=== PATIENT | female | born 1970 | race Caucasian/White ===

== ENCOUNTER 2020-02-02 20:43 | Emergency (ER) | payer OTHER ==
[~2020-02-02] VITALS: Ht 149.9 cm; Wt 59.9 kg
[~2020-02-02 20:43] MED LIST: HYDR-3108 PO; METO50TA20 PO
--- NOTE | 2020-02-02 21:04 | NUR ---
PT TAKEN TO BED 4
[2020-02-02 21:11] VITALS: BP 144/77
--- NOTE | 2020-02-02 21:30 | NUR ---
PT CAME IN WITH C/O EXCESSIVE ABD GIRTH AND ABD PAIN, UNABLE TO STATE FOR HOW LONG. PT DENIES N/V/D. AFEBRILE. PT UNWILLING TO PROVIDE MUCH INFORMATION, SHE BECOMES AGITATED WHEN ASKED QUESTIONS. PT IS IN THE BED TALKING TO HERSELF, WILL NOT SAY IF HX OF PSYCH ISSUES. PT ON BEDSIDE MONITOR. PT STATES HX OF ASTHMA, HTN, AND PANCREATITIS. ALLERGY - AMOXICILLIN, KEFLEX
--- NOTE | 2020-02-02 21:51 | NUR ---
Dr. Ingram examining patient.
[2020-02-02 22:11] LABS: BASOPHILS # (AUTO) 0.1 K/uL (0.00-0.22); BASOPHILS % (AUTO) 1.1 % (0.0-2.0); EOSINOPHILS # (AUTO) 0.2 K/uL (0-0.4); EOSINOPHILS % (AUTO) 2.9 % (0.0-4.0); HEMOGLOBIN 10.2 g/dL (12.0-16.0); LYMPHOCYTES # (AUTO) 2.4 K/uL (2.5-16.5); LYMPHOCYTES % (AUTO) 31.4 % (20.5-51.1); MEAN CORPUSCULAR HEMOGLOBIN 25 pg (27-31); MEAN CORPUSCULAR HGB CONC 32 g/dL (33-37); MEAN CORPUSCULAR VOLUME 77.4 fL (80-94); MONOCYTES # (AUTO) 0.9 K/uL (0.8-1.0); MONOCYTES % (AUTO) 11.6 % (1.7-9.3); PLATELET COUNT (AUTO) 339 K/uL (140-450); RED BLOOD CELL COUNT(AUTO) 4.13 MIL/uL (4.20-5.40); RED CELL DISTRIBUTION WIDTH 19.4 % (11.6-13.7); WHITE BLOOD COUNT (AUTO) 7.5 K/uL (4.8-10.8)
--- NOTE | 2020-02-02 22:14 | NUR ---
LABS COLLECTED AND TAKEN TO LAB. PT ADVISED WE NEED A URINE SPECIMEN, UNABLE TO GIVE AT THIS TIME
[2020-02-02 22:26] LABS: ALBUMIN 3.5 g/dL (3.4-5.0); ANION GAP 13.1 (8-16); CARBON DIOXIDE 22.7 mmol/L (21-32); CREATININE 0.8 mg/dL (0.6-1.3); POTASSIUM 3.8 mmol/L (3.5-5.1); TOTAL BILIRUBIN 0.3 mg/dL (0.0-1.0)
[2020-02-02] MEDS ORDERED: ACETAMINOPHEN EXTRA STRENGTH 500 MG TAB PO ONE (22:35)
[2020-02-02] MEDS ORDERED: KETOROLAC 15 MG/ML VIAL IVP ONE (22:35)
--- NOTE | 2020-02-02 23:00 | NUR ---
PT UNABLE TO STATE IF THE MEDICATION HELPED WITH HER PAIN. SHE CONSTANTLY SAYS "ITS THE EXTRA WEIGHT AND HEAVINESS" UNABLE TO GET A CLEAR ANSWER.
--- NOTE | 2020-02-02 23:47 | NUR ---
PT IS SLEEPING, RESPIRATIONS REGULAR EVEN AND UNLABORED.
--- NOTE | 2020-02-03 01:33 | NUR ---
PT UP FOR DISCHARGE, STATES SHE NEEDS TO SPEAK TO THE DOCTOR BEFORE SHE GOES, SHE'S TOO "BLOWN UP". PT DOESN'T THINK HER ISSUE HAS BEEN RESOLVED
--- NOTE | 2020-02-03 03:31 | NUR ---
PT SLEEPING, RESPIRATIONS REGULAR EVEN AND UNLABORED.
[2020-02-03 04:01] VITALS: BP 138/84
--- NOTE | 2020-02-03 04:04 | NUR ---
Patient discharged with v/s stable. Written and verbal after care instructions given and explained. Patient alert, oriented and verbalized understanding of instructions. Ambulatory with steady gait. All questions addressed prior to discharge. ID band removed. Patient advised to follow up with PMD. Rx of HCTZ AND PEPCID given. Patient educated on indication of medication including possible reaction and side effects. Opportunity to ask questions provided and answered.
--- NOTE | 2020-02-03 04:04 | NUR ---
PT WAS PROVIDED WITH A BUS PASS.
== END 2020-02-03 04:04 | disposition home or self-care (01) ==
LOC: MED 20:43
DX: K85.90 Acute pancreatitis without necrosis or infection, unspecified (principal); I10 Essential (primary) hypertension; J45.909 Unspecified asthma, uncomplicated; Z88.1 Allergy status to other antibiotic agents; Z88.0 Allergy status to penicillin; Z76.0 Encounter for issue of repeat prescription; Z79.899 Other long term (current) drug therapy; F17.210 Nicotine dependence, cigarettes, uncomplicated; F12.10 Cannabis abuse, uncomplicated; Z59.0 Homelessness
CPT/HCPCS: 36415; 80053; 81002; 81025; 83690; 85025; 96374; 99283; J1885; 96372

== ENCOUNTER 2020-02-08 03:18 | Emergency (ER) | payer OTHER ==
[~2020-02-08] VITALS: Ht 165.1 cm; Wt 63.5 kg
[2020-02-08] MEDS ORDERED: diphenhydrAMINE 50 MG/ML VIAL IM ONE (03:35)
[2020-02-08] MEDS ORDERED: KETOROLAC 30 MG/ML VIAL IM ONE (03:35)
[2020-02-08 05:55] LABS: ALBUMIN 3.4 g/dL (3.4-5.0); ANION GAP 8.2 (8-16); CARBON DIOXIDE 31.1 mmol/L (21-32); CREATININE 0.9 mg/dL (0.6-1.3); POTASSIUM 3.3 mmol/L (3.5-5.1); TOTAL BILIRUBIN 0.2 mg/dL (0.0-1.0)
== END 2020-02-08 06:33 | disposition home or self-care (01) ==
LOC: MED 03:18
DX: R10.9 Unspecified abdominal pain (principal); L29.9 Pruritus, unspecified; J45.909 Unspecified asthma, uncomplicated; I10 Essential (primary) hypertension; Z88.1 Allergy status to other antibiotic agents; Z79.899 Other long term (current) drug therapy
CPT/HCPCS: 36415; 80053; 83690; 96372; 99284; J1200; J1885

== ENCOUNTER 2020-02-12 03:20 | Emergency (ER) | payer OTHER ==
[~2020-02-12] VITALS: Ht 152.4 cm; Wt 63.5 kg
[2020-02-12 03:27] VITALS: BP 130/83
--- NOTE | 2020-02-12 03:31 | NUR ---
PT TAKEN TO BED 8
--- NOTE | 2020-02-12 03:36 | NUR ---
ERMD AT BEDSIDE.
--- NOTE | 2020-02-12 03:50 | NUR ---
NO NURSING INTERVENTIONS NEEDED.
[2020-02-12 03:51] VITALS: BP 130/83
--- NOTE | 2020-02-12 03:51 | NUR ---
PT D/C WITH RX OF MAT. PT REFUSING TO SIGN DC PAPERWORK. PT REFUSING TO LEAVE ER. SECURITY CALLED TO ESCORT PT OUT OF ER.
== END 2020-02-12 03:51 | disposition home or self-care (01) ==
LOC: MED 03:20
DX: L29.9 Pruritus, unspecified (principal); F15.10 Other stimulant abuse, uncomplicated; I10 Essential (primary) hypertension; J45.909 Unspecified asthma, uncomplicated; Z88.1 Allergy status to other antibiotic agents; Z79.899 Other long term (current) drug therapy
CPT/HCPCS: 99282

== ENCOUNTER 2020-03-02 06:20 | Emergency (ER) | payer OTHER ==
[~2020-03-02] VITALS: Ht 149.9 cm; Wt 59.0 kg
[2020-03-02 06:30] VITALS: BP 143/88
[2020-03-02] MEDS ORDERED: KETOROLAC 30 MG/ML VIAL IVP ONE (06:35)
[2020-03-02] MEDS ORDERED: ONDANSETRON 4 MG/2 ML VIAL IVP ONE (06:35)
[2020-03-02] MEDS ORDERED: NACL 0.9% 500 ML IV ONE (06:35)
[2020-03-02 06:45] VITALS: BP 143/88
== END 2020-03-02 06:45 | disposition left against medical advice (07) ==
LOC: MED 06:20
DX: R10.9 Unspecified abdominal pain (principal); I10 Essential (primary) hypertension; J45.909 Unspecified asthma, uncomplicated; Z88.1 Allergy status to other antibiotic agents; Z79.899 Other long term (current) drug therapy; Z53.21 Procedure and treatment not carried out due to patient leaving prior to being seen by health care provider

== ENCOUNTER 2020-03-02 08:32 | Emergency (ER) | payer OTHER ==
[~2020-03-02] VITALS: Ht 147.3 cm; Wt 65.8 kg
[2020-03-02] MEDS ORDERED: DICYCLOMINE HCL LIQUID 20 MG, ALUMINUM HYD/MAG/SIMETHICONE 30 ML, LIDOCAINE VISCOUS 2% ... PO ONE ×3 (08:55)
[2020-03-02] MEDS ORDERED: KETOROLAC 15 MG/ML VIAL IM ONE (08:55)
[2020-03-02] MEDS ORDERED: LIDOCAINE VISCOUS 2% 20 ML UDC ONE (09:05)
[2020-03-02] MEDS ORDERED: DICYCLOMINE HCL LIQUID 10 MG/5 ML UDC ONE (09:06)
[2020-03-02] MEDS ORDERED: ALUMINUM HYD/MAG/SIMETHICONE 30 ML UDC ONE (09:06)
[2020-03-02 09:16] LABS: BASOPHILS # (AUTO) 0.1 K/uL (0.00-0.22); BASOPHILS % (AUTO) 1.2 % (0.0-2.0); EOSINOPHILS # (AUTO) 0.1 K/uL (0-0.4); EOSINOPHILS % (AUTO) 1.1 % (0.0-4.0); HEMATOCRIT 33.9 % (36-48); HEMOGLOBIN 10.9 g/dL (12.0-16.0); LYMPHOCYTES # (AUTO) 1.6 K/uL (2.5-16.5); LYMPHOCYTES % (AUTO) 18.9 % (20.5-51.1); MEAN CORPUSCULAR HEMOGLOBIN 24 pg (27-31); MEAN CORPUSCULAR HGB CONC 32 g/dL (33-37); MEAN CORPUSCULAR VOLUME 75.6 fL (80-94); MONOCYTES # (AUTO) 0.6 K/uL (0.8-1.0); MONOCYTES % (AUTO) 7.8 % (1.7-9.3); NEUTROPHILS # (AUTO) 5.9 K/uL (1.8-7.7); PLATELET COUNT (AUTO) 369 K/uL (140-450); RED BLOOD CELL COUNT(AUTO) 4.48 MIL/uL (4.20-5.40); RED CELL DISTRIBUTION WIDTH 19.8 % (11.6-13.7); WHITE BLOOD COUNT (AUTO) 8.3 K/uL (4.8-10.8)
[2020-03-02 09:29] LABS: ALBUMIN 3.6 g/dL (3.4-5.0); CREATININE 0.6 mg/dL (0.6-1.3); TOTAL BILIRUBIN 0.3 mg/dL (0.0-1.0)
== END 2020-03-02 10:31 | disposition home or self-care (01) ==
LOC: MED 08:32
DX: K86.1 Other chronic pancreatitis (principal); I10 Essential (primary) hypertension; J45.909 Unspecified asthma, uncomplicated; Z88.1 Allergy status to other antibiotic agents; Z79.899 Other long term (current) drug therapy
CPT/HCPCS: 36415; 80053; 83690; 85025; 96372; 99283; J1885

== ENCOUNTER 2020-03-09 01:00 | Emergency (ER) | payer OTHER ==
[~2020-03-09] VITALS: Ht 149.9 cm; Wt 59.9 kg
--- NOTE | 2020-03-09 01:01 | NUR ---
amb to chair b
[2020-03-09 01:05] VITALS: BP 136/76
--- NOTE | 2020-03-09 01:10 | NUR ---
Patient discharged with v/s stable. Written and verbal after care instructions given and explained. Patient alert, oriented and verbalized understanding of instructions. Ambulatory with steady gait. All questions addressed prior to discharge. ID band removed. Patient advised to follow up with PMD. Rx of metoprolol and azithromycin, permethrin given. Patient educated on indication of medication including possible reaction and side effects. Opportunity to ask questions provided and answered.
== END 2020-03-09 01:10 | disposition home or self-care (01) ==
LOC: MED 01:00
DX: I10 Essential (primary) hypertension (principal); K21.9 Gastro-esophageal reflux disease without esophagitis; Z76.0 Encounter for issue of repeat prescription; Z88.1 Allergy status to other antibiotic agents; Z79.899 Other long term (current) drug therapy
CPT/HCPCS: 99281

== ENCOUNTER 2020-03-09 12:23 | Emergency (ER) | payer OTHER ==
[~2020-03-09] VITALS: Ht 149.9 cm; Wt 59.0 kg
--- NOTE | 2020-03-09 12:27 | NUR ---
Patient ambulated to chair C. RN evaluating patient.
[2020-03-09 12:32] VITALS: BP 159/90
--- NOTE | 2020-03-09 12:39 | NUR ---
50 y/o female bib self for lice. Patient was seen at [facility] yesterday. Patient is asking for lice shampoo. A/ox4 GCS 15; respirations unlabored and equal; skin: dry and red; Lice noted on hair. Gait is steady. Patient is homeless. ERMD made aware of status. PMH: Cataracts; HTN Meds; unknown Allergies: See med rec.
--- NOTE | 2020-03-09 13:20 | NUR ---
Dr. Nicholson is evaluating the patient.
[2020-03-09 13:31] VITALS: BP 159/90
--- NOTE | 2020-03-09 13:32 | NUR ---
Patient discharged with v/s stable. Written and verbal after care instructions given and explained. Patient alert, oriented and verbalized understanding of instructions. Ambulatory with steady gait. All questions addressed prior to discharge. ID band removed. Patient advised to follow up with PMD. Rx of ALBUTEROL, PERMETHRIN given. Patient educated on indication of medication including possible reaction and side effects. Opportunity to ask questions provided and answered.
== END 2020-03-09 13:32 | disposition home or self-care (01) ==
LOC: MED 12:23
DX: B85.0 Pediculosis due to Pediculus humanus capitis (principal); J45.909 Unspecified asthma, uncomplicated; I10 Essential (primary) hypertension; K21.9 Gastro-esophageal reflux disease without esophagitis; Z76.0 Encounter for issue of repeat prescription; Z88.1 Allergy status to other antibiotic agents; Z79.899 Other long term (current) drug therapy
CPT/HCPCS: 99283

== ENCOUNTER 2023-06-11 18:50 | Emergency (ER) | payer OTHER ==
[~2023-06-11] VITALS: Ht 149.9 cm; Wt 52.2 kg
[2023-06-11 18:50] VITALS: BP 112/79; PULSE 83; RESP 17; TEMP 98; O2SAT 98
[~2023-06-11 18:50] MED LIST changes: -HYDR-3108 PO; +HYDR50TA38 PO
[2023-06-11] MEDS ORDERED: AZIT250T4 PO (22:39)
[2023-06-11] MEDS: ACETAMINOPHEN EXTRA STRENGTH 500 MG TAB PO ONE (22:47)
[2023-06-12] MEDS ORDERED: AZIT250T4 PO (08:00)
== END 2023-06-11 22:58 | disposition home or self-care (01) ==
LOC: MED 18:50
DX: R07.9 Chest pain, unspecified (principal); J45.909 Unspecified asthma, uncomplicated; K21.9 Gastro-esophageal reflux disease without esophagitis; I10 Essential (primary) hypertension; Z79.899 Other long term (current) drug therapy; Z79.2 Long term (current) use of antibiotics; Z88.0 Allergy status to penicillin; Z88.1 Allergy status to other antibiotic agents
CPT/HCPCS: 71045; 93005; 99283

== ENCOUNTER 2023-06-13 09:48 | Emergency (ER) | payer OTHER ==
[~2023-06-13] VITALS: Ht 154.9 cm; Wt 56.7 kg
[~2023-06-13 09:48] MED LIST changes: +AZIT250T4 PO
[2023-06-13 09:51] VITALS: BP 124/74; PULSE 108; RESP 19; TEMP 97.4; O2SAT 100
[2023-06-13 10:20] VITALS: BP 124/74; PULSE 108; RESP 19; TEMP 97.4; O2SAT 100
[2023-06-13] MEDS ORDERED: CLIN300C2 PO (10:20)
[2023-06-13] MEDS ORDERED: NAPR-1704 PO (10:20)
[2023-06-13] MEDS ORDERED: HYDR-4004 PO (11:16)
[2023-06-13] MEDS ORDERED: METO50TE2 PO (11:16)
== END 2023-06-13 10:33 | disposition home or self-care (01) ==
LOC: MED 09:48
DX: K04.7 Periapical abscess without sinus (principal); I10 Essential (primary) hypertension; J45.909 Unspecified asthma, uncomplicated; K21.9 Gastro-esophageal reflux disease without esophagitis; Z88.1 Allergy status to other antibiotic agents; Z88.8 Allergy status to other drugs, medicaments and biological substances; Z79.899 Other long term (current) drug therapy
CPT/HCPCS: 99283

== ENCOUNTER 2023-06-15 12:25 | Emergency (ER) | payer OTHER ==
[~2023-06-15 12:25] MED LIST changes: +CLIN300C2 PO; +HYDR-4004 PO; +METO50TE2 PO; +NAPR-1704 PO
== END 2023-06-15 14:01 | disposition left against medical advice (07) ==
LOC: MED 12:25
DX: R10.9 Unspecified abdominal pain (principal); Z53.21 Procedure and treatment not carried out due to patient leaving prior to being seen by health care provider

== ENCOUNTER 2023-06-15 17:00 | Inpatient (IN) | payer OTHER ==
[~2023-06-15] VITALS: Ht 149.9 cm; Wt 52.2 kg
[2023-06-15 17:47] VITALS: BP 111/70; PULSE 62; RESP 16; TEMP 98.3; O2SAT 100
[2023-06-15 22:56] LABS: MEAN CORPUSCULAR HEMOGLOBIN 18 pg (27-31); MEAN CORPUSCULAR HGB CONC 30 g/dL (33-37); MEAN CORPUSCULAR VOLUME 59.1 fL (80-94); PLATELET COUNT (AUTO) 507 K/uL (140-450); RED BLOOD CELL COUNT(AUTO) 3.17 MIL/uL (4.20-5.40); RED CELL DISTRIBUTION WIDTH 20.8 % (11.6-13.7); WHITE BLOOD COUNT (AUTO) 8.6 K/uL (4.8-10.8)
[2023-06-15 23:09] LABS: ANION GAP 8.5 (8-16); CALCIUM 8.3 mg/dL (8.5-10.1); CARBON DIOXIDE 31.8 mmol/L (21-32); CREATININE 0.8 mg/dL (0.6-1.3); POTASSIUM 4.3 mmol/L (3.5-5.1)
[2023-06-15 23:14] LABS: BILIRUBIN,DIRECT 0.1 mg/dL (0.0-0.3); TOTAL BILIRUBIN 0.1 mg/dL (0.0-1.0); TOTAL PROTEIN, SERUM 7.4 g/dL (6.4-8.2)
[2023-06-15 23:18] LABS: HEMOGLOBIN 5.7 g/dL (12.0-16.0)
[2023-06-15 23:19] LABS: HEMATOCRIT 18.7 % (36-48)
[2023-06-15 23:28] LABS: EOSINOPHILS % (MANUAL) 5 % (0-4); LYMPHOCYTES % (MANUAL) 27 % (20-46); MONOCYTES % (MANUAL) 9 % (5-12)
[2023-06-15 23:29] LABS: ANISOCYTOSIS 1+; HYPOCHROMASIA 2+
[2023-06-16 00:35] LABS: INR 0.95 (0.8-1.2); PARTIAL THROMBOPLASTIN TIME 22.3 secs (22-35.6)
[2023-06-16] MEDS: ONDANSETRON 4 MG/2 ML VIAL IVP ONE (02:07)
[2023-06-16] MEDS: MORPHINE SULFATE 4 MG/ML SYR IVP ONE (02:07)
[2023-06-16 02:58] LABS: APPEARANCE,URINE CLEAR (CLEAR); BILIRUBIN,URINE NEGATIVE (NEGATIVE); BLOOD, URINE NEGATIVE (NEGATIVE); COLOR,URINE YELLOW (YELLOW); LEUKOCYTE ESTERASE ,URINE NEGATIVE (NEGATIVE); NITRITE, URINE NEGATIVE (NEGATIVE); PH,URINE 8.5 (5.0-9.0); PROTEIN,URINE NEGATIVE (NEGATIVE); UGLUCOSE NEGATIVE (NEGATIVE); UROBILINOGEN,URINE 0.2 EU/dL (0.2 - 1)
[2023-06-16] MEDS ORDERED: KCL 20 MEQ IN 100 mL PREMIX 200 ML IV PRN (03:10)
[2023-06-16] MEDS ORDERED: MORPHINE SULFATE 4 MG/ML SYR IVP PRN (03:10)
[2023-06-16] MEDS: NACL 0.9% 1,000 ML IV SCH (03:10)
[2023-06-16] MEDS ORDERED: POTASSIUM CHLORIDE 10 MEQ TABER PO PRN (03:10)
[2023-06-16] MEDS ORDERED: MAG SULF 2000 MG/WATER PREMIX 50 ML IV PRN (03:10)
[2023-06-16] MEDS ORDERED: MAGNESIUM OXIDE 400 MG TAB PO PRN (03:10)
[2023-06-16] MEDS: ONDANSETRON 4 MG/2 ML VIAL IVP PRN (04:16)
[2023-06-16] MEDS: ZOLPIDEM 10 MG TAB PO ONE (04:45)
[2023-06-16 07:55] VITALS: BP 138/75; PULSE 65; RESP 18; TEMP 97.9; O2SAT 97; O2SAT 98
[2023-06-16 16:00] VITALS: BP 140/81; PULSE 72; RESP 18; TEMP 98.4; O2SAT 100
[2023-06-16] MEDS ORDERED: ALBUTEROL HFA MDI 90 MCG/ACTUATION 8 GM INH PRN (16:00)
[2023-06-16] MEDS ORDERED: ALBUTEROL 2 MG/5 ML ORASYR GT PRN (16:05)
[2023-06-16] MEDS ORDERED: ALBUTEROL 0.083% 2.5 MG/3 ML NEBU INH PRN (16:15)
[2023-06-16 16:33] VITALS: PULSE 69; RESP 16; RESP 18; O2SAT 100
[2023-06-16] MEDS: ALBUTEROL 0.083% 2.5 MG/3 ML NEBU INH PRN (16:33)
[2023-06-16] MEDS: PANTOPRAZOLE 40 MG INJ VIAL IVP SCH (17:00)
[2023-06-16 19:50] VITALS: O2SAT 99
[2023-06-16 20:00] VITALS: BP 150/85; PULSE 71; RESP 18; TEMP 97.4; O2SAT 96
[2023-06-16 20:04] VITALS: O2SAT 99
[2023-06-16] MEDS: METOPROLOL SUCCINATE 50 MG TABER PO SCH (21:10)
[2023-06-16] MEDS: ACETAMINOPHEN 325 MG TAB PO PRN (22:03)
[2023-06-17 07:50] LABS: HEMOGLOBIN 10.6 g/dL (12.0-16.0); MEAN CORPUSCULAR HEMOGLOBIN 22 pg (27-31); MEAN CORPUSCULAR HGB CONC 31 g/dL (33-37); PLATELET COUNT (AUTO) 446 K/uL (140-450); RED BLOOD CELL COUNT(AUTO) 4.79 MIL/uL (4.20-5.40); RED CELL DISTRIBUTION WIDTH 29.8 % (11.6-13.7); WHITE BLOOD COUNT (AUTO) 6.9 K/uL (4.8-10.8)
[2023-06-17 07:53] VITALS: O2SAT 100
[2023-06-17 08:00] VITALS: BP 155/78; PULSE 67; RESP 16; TEMP 98; O2SAT 100
[2023-06-17 08:04] LABS: ALBUMIN 2.6 g/dL (3.4-5.0); ANION GAP 14.4 (8-16); CALCIUM 8.4 mg/dL (8.5-10.1); CARBON DIOXIDE 22.7 mmol/L (21-32); CREATININE 0.6 mg/dL (0.6-1.3); MAGNESIUM 1.9 mg/dL (1.8-2.4); POTASSIUM 5.1 mmol/L (3.5-5.1); TOTAL BILIRUBIN 0.2 mg/dL (0.0-1.0); TOTAL PROTEIN, SERUM 7.4 g/dL (6.4-8.2)
[2023-06-17 08:06] LABS: LYMPHOCYTES % (MANUAL) 40 % (20-46)
[2023-06-17 08:07] LABS: BASOPHILS % (MANUAL) 0 % (0-2); EOSINOPHILS % (MANUAL) 3 % (0-4); MONOCYTES % (MANUAL) 8 % (5-12); PLATELET ESTIMATE ADEQUATE
[2023-06-17] MEDS: HYDROcodone/APAP 5/325 MG 1 TAB TAB PO PRN (12:00)
[2023-06-17] MEDS ORDERED: BISM262C47 PO (14:00)
[2023-06-17] MEDS ORDERED: PANT40EC PO (14:00)
== END 2023-06-17 15:50 | disposition home or self-care (01) ==
LOC: MED 17:00 → MTU 06-16 03:12 → MMU 06-16 06:31
PROVIDERS: ADMIT Student in an Organized Health Care Education/Training Program; ATTEND Student in an Organized Health Care Education/Training Program
PROC: 30233N1 Transfusion of Nonautologous Red Blood Cells into Peripheral Vein, Percutaneous Approach (ICD-10-PCS; principal; 2023-06-16)
DX: K74.60 Unspecified cirrhosis of liver (principal); R64 Cachexia; E44.1 Mild protein-calorie malnutrition; D63.8 Anemia in other chronic diseases classified elsewhere; R62.7 Adult failure to thrive; E86.0 Dehydration; E86.1 Hypovolemia; K59.00 Constipation, unspecified; I10 Essential (primary) hypertension; J45.909 Unspecified asthma, uncomplicated; K21.9 Gastro-esophageal reflux disease without esophagitis; Z88.1 Allergy status to other antibiotic agents; Z68.23 Body mass index [BMI] 23.0-23.9, adult
CPT/HCPCS: 36415; 36430; 80048; 80053; 80076; 81003; 83690; 83735; 85025; 85610; 85730; 86886; 86900; 86901; 86920; 87081; 94640; 96374; 96375; 99285; C9113; J2270; J2405; J7613; P9016